=== PATIENT | female | born 1970 ===

== ENCOUNTER 2021-06-01 11:15 | Observation (INO) ==
[2021-06-01] MEDS ORDERED: Ondansetron 4 mg VIAL 2 MG/ML 2 ml VIAL ONE (11:20)
[2021-06-01] MEDS ORDERED: oxyCODONE SR 10 mg TAB ONE (11:20)
[2021-06-01] MEDS ORDERED: Clindamycin 900 MG/D5W BAG IVPB ONE (12:00)
[2021-06-01 12:37] LABS: ABS Eosinophils 0.4 10^3/ul (0-0.6); ABS Lymphocytes 1.8 10^3/ul (1.0-4.8); ABS Monocytes 0.5 10^3/ul (0-0.8); ABS Neutrophils 3.1 10^3/ul (1.5-7.7); Eosinophil % 6.9 %; Hematocrit 35 % (35-47); Lymphocyte % 31.4 %; Mean Corpuscular HGB Conc 32 g/dL (31-36); Mean Corpuscular Hemoglobin 25 pg (27-31); Mean Corpuscular Volume 78 fL (80-97); Mean Platelet Volume 9.7 fL (7.4-10.4); Platelet Count 299 10^3/uL (150-450); Red Blood Count 4.42 10^6 /uL (3.70-4.87); Red Cell Distribution Width 16 % (10-15); White Blood Count 5.9 10^3/uL (3.5-10.8)
[2021-06-01 12:50] LABS: Potassium 3.6 mmol/L (3.5-5.0); eGFR CKD-EPI 96.9 (>60)
[2021-06-01] MEDS ORDERED: Iohexol 350 (CONTRAST) 200 ML MDV IV ONE (12:52)
[2021-06-01] MEDS ORDERED: Lidocaine 1% VIAL 10 MG/ML VIAL ONE (12:52)
[2021-06-01] MEDS ORDERED: Heparin 2 UNITS/ML IVPREMIX 3,000 UNIT/1,500 ML BAG IV ONE (12:53)
[2021-06-01 12:54] LABS: Activated Partial Thrombo Time 28.1 seconds (26.0-38.0); HCG Pregnancy 0.88 mIU/mL; INR 1.11 (0.86-1.15)
[2021-06-01] MEDS ORDERED: Midazolam 5 mg/5 ml VIAL 1 mg/ml 5 ml VIAL (5 mg) ONE (13:10)
[2021-06-01] MEDS ORDERED: fentaNYL 100 mcg/2 ml 50 MCG/ML VIAL ONE (13:10)
[2021-06-01] MEDS ORDERED: nitroGLYCERIN DRIP 25,000 MCG/250 ML BTL ONE (13:44)
[2021-06-01] MEDS ORDERED: HYDROmorphone 0.5 MG/0.5 ML SYRINGE ONE (14:37)
[2021-06-01] MEDS ORDERED: Prochlorperazine 5 mg/ml 2 ml VIAL (10 mg) ONE (14:48)
[2021-06-01] MEDS ORDERED: HYDROmorphone PCA 1 MG/ML Titrat per Protocol PCA SCH (16:00)
[2021-06-01] MEDS ORDERED: Prochlorperazine 5 mg/ml 2 ml VIAL (10 mg) IV PRN (16:54)
[2021-06-01] MEDS ORDERED: Albuterol HFA INHALER 8 gm MDI INH PRN (17:45)
[2021-06-01] MEDS ORDERED: NS 0.9% 1,000 ML IV SCH (18:15)
[2021-06-01] MEDS: Ondansetron 4 mg VIAL 2 MG/ML 2 ml VIAL IV SCH (19:18)
[2021-06-02] MEDS: Ondansetron 4 mg VIAL 2 MG/ML 2 ml VIAL IV SCH ×2 (01:20→07:48)
[2021-06-02] MEDS ORDERED: Mometasone/Formoter 200/5 MDI INH SCH (07:00)
[2021-06-02 07:34] VITALS: BP 109/56
[2021-06-02] MEDS ORDERED: HYDROcodone/ACETAMIN 5/325 mg TAB PO PRN (10:27)
[2021-06-02] MEDS ORDERED: CMCS:Ketorolac 10 mg TAB (NF) PO SCH (14:00)
== END 2021-06-02 12:10 | disposition home or self-care (01) ==
LOC: CHICATH 11:15 → SSU 17:34 → INTOOBSV 17:34
PROVIDERS: ADMIT Radiology Diagnostic Radiology; ATTEND Internal Medicine
PROC: ANG.UFE (2021-06-01 12:10)